=== PATIENT | female | born 1980 ===

== ENCOUNTER 2016-08-21 22:47 | Emergency (ER) | payer SELFPAY ==
[2016-08-21 23:12] VITALS: BP 106/72; PULSE 68; RESP 18; TEMP 98; O2SAT 99
--- NOTE | 2016-08-21 23:23 | ED PDOC ---
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 pt admits rash to be at legs b/l buttock, arms b/l and chest with itching. denies:: pain, swelling of fingers, lips tongue ear or toes, denies SOB , CP, nausea vomiting, diarrhea, vision changes. denies use of new detergent soaps foods. Past Medical History Reviewed: Historical Data, Nursing Documentation, Vital Signs Vital Signs: Last Vital Signs Temp 98 F 08/21/16 23:10 Pulse 68 08/21/16 23:10 Resp 18 08/21/16 23:10 BP 106/72 08/21/16 23:10 Pulse Ox 99 08/21/16 23:10 - Medical History PMH: No Chronic Diseases - Family History Family History: States: No Known Family Hx - Home Medications Home Medications: Ambulatory Orders Medication Instructions Recorded Calamine/Pramoxine [Caladryl] 180 ml TP DAILY #1 bottle 08/21/16 DiphenhydrAMINE [Benadryl] 25 mg PO Q4H #30 cap 08/21/16 Methylprednisolone [Medrol Dose 4 mg PO DAILY #21 mg 08/21/16 Pack (21 tabs)] - Allergies Allergies/Adverse Reactions: Allergies Allergy/AdvReac Type Severity Reaction Status Date / Time No Known Allergies Allergy Verified 08/21/16 23:10 Review of Systems ROS Statement: Except As Marked, All Systems Reviewed And Found Negative Constitutional: Negative for: Fever, Chills Skin: Positive for: Rash Physical Exam - Reviewed Nursing Documentation Reviewed: Yes Vital Signs Reviewed: Yes - Physical Exam Appears: Positive for: Well, Non-toxic, No Acute Distress Head Exam: Positive for: ATRAUMATIC, NORMAL INSPECTION, NORMOCEPHALIC Skin: Positive for: Warm, Rash (red rash noted to b/l forearms, buttock, chest and inner thighs no vesicles no induration no swelling ) Eye Exam: Positive for: Normal appearance, EOMI, PERRL ENT: Positive for: Normal ENT Inspection. Negative for: Pharyngeal Erythema Neck: Positive for: Normal, Painless ROM Cardiovascular/Chest: Positive for: Regular Rate, Rhythm Respiratory: Positive for: CNT, Normal Breath Sounds Gastrointestinal/Abdominal: Positive for: Normal Exam, Bowel Sounds, Soft Extremity: Positive for: Normal ROM. 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 Disposition - Clinical Impression Clinical Impression: Allergic dermatitis - Patient ED Disposition Is Patient to be Admitted: No Counseled Patient/Family Regarding: Diagnosis, Need For Followup, Rx Given - Disposition Referrals: [facility] [Outside] [facility] [Provider Group] Disposition: Routine/Home Disposition Time: 23:22 Condition: STABLE Prescriptions: DiphenhydrAMINE [Benadryl] 25 mg PO Q4H #30 cap Calamine/Pramoxine [Caladryl] 180 ml TP DAILY #1 bottle Methylprednisolone [Medrol Dose Pack (21 tabs)] 4 mg PO DAILY #21 mg Instructions: Contact Dermatitis (ED) Print Language: FRISIAN
== END 2016-08-21 23:42 | disposition home or self-care (01) ==
LOC: H.ER 22:47
DX: L23.9 Allergic contact dermatitis, unspecified cause (principal)

== ENCOUNTER 2017-12-04 09:55 | Emergency (ER) | payer OTHER, SELFPAY ==
[2017-12-04 09:59] VITALS: BMI 31.2
[2017-12-04] MEDS ORDERED: Sodium Chloride 0.9% 1,000 ML IV STA (10:26)
--- NOTE | 2017-12-04 10:30 | ED PDOC ---
HPI: Back Time Seen by Provider: 12/04/17 10:01 Chief Complaint (Nursing): Female Genitourinary Chief Complaint (Provider): Back pain History Per: Patient History/Exam Limitations: no limitations Onset/Duration Of Symptoms: Days (x2) Current Symptoms Are (Timing): Constant Additional Complaint(s): Patient is a 37 y/o female with history of thyroid issues, who presents to the ED complaining of right sided lower back pain, onset x2 days ago. Patient reports the pain has been constant and radiates to the right side of her lower abdomen and her right leg. She confrims a little pain when urinating. She denies any incontinence both urinary and bowel, chest pain, shortness of breath , diarrhea, numbness or tingling, as well as any injury or fall. Patient takes medication for her thyroid but has not taken any medication to manage pain symptoms. PMD: Past Medical History Reviewed: Historical Data, Nursing Documentation, Vital Signs Vital Signs: Last Vital Signs Temp 97.6 F 12/04/17 09:59 Pulse 66 12/04/17 09:59 Resp 20 12/04/17 09:59 BP 106/70 12/04/17 09:59 Pulse Ox 99 12/04/17 09:59 - Surgical History Surgical History: No Surg Hx - Family History Family History: States: Unknown Family Hx - Home Medications Home Medications: Ambulatory Orders Medication Instructions Recorded Calamine/Pramoxine [Caladryl] 180 ml TP DAILY #1 bottle 08/21/16 DiphenhydrAMINE [Benadryl] 25 mg PO Q4H #30 cap 08/21/16 Methylprednisolone [Medrol Dose 4 mg PO DAILY #21 mg 08/21/16 Pack (21 tabs)] Ibuprofen [Motrin] 600 mg PO TID 7 Days tab 12/04/17 - Allergies Allergies/Adverse Reactions: Allergies Allergy/AdvReac Type Severity Reaction Status Date / Time No Known Allergies Allergy Verified 08/21/16 23:10 Review of Systems ROS Statement: Except As Marked, All Systems Reviewed And Found Negative Constitutional: Negative for: Fever Cardiovascular: Negative for: Chest Pain Respiratory: Negative for: Shortness of Breath Gastrointestinal: Positive for: Abdominal Pain (right lower). Negative for: Diarrhea Genitourinary Female: Positive for: Dysuria (little bit). Negative for: Frequency, Incontinence Musculoskeletal: Positive for: Back Pain (right lower flank), Leg Pain (upper right leg) Neurological: Negative for: Numbness Physical Exam - Reviewed Nursing Documentation Reviewed: Yes Vital Signs Reviewed: Yes - Physical Exam Appears: Positive for: Non-toxic, No Acute Distress Head Exam: Positive for: ATRAUMATIC, NORMOCEPHALIC Skin: Positive for: Normal Color, Warm, Dry Eye Exam: Positive for: EOMI, Normal appearance, PERRL Neck: Positive for: Normal, Painless ROM, Supple Cardiovascular/Chest: Positive for: Regular Rate, Rhythm. Negative for: Murmur Respiratory: Positive for: Normal Breath Sounds. Negative for: Respiratory Distress Gastrointestinal/Abdominal: Positive for: Normal Exam, Soft, Tenderness ( tenderness to palpation RLQ) Back: Positive for: R CVA Tenderness (tenderness to palpation right flank) Extremity: Positive for: Normal ROM. Negative for: Pedal Edema, Deformity Neurologic/Psych: Positive for: Alert, Oriented, Other (straight leg raise test - negative). Negative for: Motor/Sensory Deficits - Laboratory Results Result Diagrams: 12/04/17 10:30 12/04/17 10:30 Interpretation Of Abn Labs: no acute Urine dip results: Negative for: Leukocyte Esterase, Nitrate - ECG O2 Sat by Pulse Oximetry: 99 (RA) Pulse Ox Interpretation: Normal - CT Scan/US ct Other Rad Studies (CT/US): Read By Radiologist Other Rad Interpretation: no acute - Progress ED Course And Treament: 1248: Stable. AAOx3. Pain free. Tolerated PO. Fu with pcp. Medical Decision Making Medical Decision Making: Time: 10:25 Initial Impression: Right flank pain Initial Plan: --CT Abdomen & Pelvis w/o contrast --CMP --ED urine --Urine Dip --CBC w/ differential --Sodium Chloride 0.9% 1000 ml IV 1000 mls/hr --Toradol 15 mg IVP ----- Scribe Attestation: Documented by Jt Ho, acting as a scribe for Kevin Vásquez MD. Provider Scribe Attestation: All medical record entries made by the Scribe were at my direction and personally dictated by me. I have reviewed the chart and agree that the record accurately reflects my personal performance of the history, physical exam, medical decision making, and the department course for this patient. I have also personally directed, reviewed, and agree with the discharge instructions and disposition. Disposition - Clinical Impression Clinical Impression: Back pain - Patient ED Disposition Is Patient to be Admitted: No Counseled Patient/Family Regarding: Studies Performed, Diagnosis, Need For Followup, Rx Given - Disposition Referrals: [facility] [Outside] - 12/05/17 Disposition: Routine/Home Disposition Time: 12:48 Condition: STABLE Additional Instructions: Return if not better in 3 days. Prescriptions: Ibuprofen [Motrin] 600 mg PO TID 7 Days tab Instructions: Low Back Pain in Adults Print Language: ROMANSH
[2017-12-04 10:52] LABS: BASO # 0.1 K/uL (0.0-0.2); BASO % 0.8 % (0.0-2.0); EOS # 0.1 K/uL (0.0-0.7); EOS % 1.6 % (0.0-4.0); HEMOGLOBIN 13.7 g/dL (12.0-16.0); LYMPH # 2.3 K/uL (1.0-4.3); LYMPH % 30.7 % (20.0-40.0); MEAN CELL VOLUME 85.8 fl (81.0-99.0); MEAN CORPUSCULAR HEMOGLOBIN 29.5 pg (27.0-31.0); MEAN CORPUSCULAR HGB CONC 34.4 g/dL (33.0-37.0); MEAN PLATELET VOLUME 9.1 fl (7.2-11.7); MONO # 0.4 K/uL (0.0-0.8); MONO % 5.9 % (0.0-10.0); NEUT # 4.6 K/uL (1.8-7.0); NRBC % 0.1 % (0.0-0.0); RBC 4.64 Mil/uL (3.80-5.20); WHITE BLOOD COUNT 7.5 K/uL (4.8-10.8)
[2017-12-04 10:54] LABS: ALB/GLOB RATIO 1.4 (1.0-2.1); ALBUMIN 4.1 g/dL (3.5-5.0); ALT/SGPT 22 U/L (9-52); AST/SGOT 19 U/L (14-36); BLOOD UREA NITROGEN 13 mg/dl (7-17); CALCIUM 9.3 mg/dL (8.4-10.2); GFR AFRICAN-AMERICAN > 60; GFR NON-AFRICAN AMERICAN > 60
--- NOTE | 2017-12-04 11:50 | CT ---
Date of service: 12/04/2017 PROCEDURE: CT Abdomen and Pelvis without intravenous contrast HISTORY: R/O stone COMPARISON: None. TECHNIQUE: Axial and reformatted coronal and sagittal CT images of the abdomen and pelvis were obtained without IV or oral contrast administration. Contrast dose: . Radiation dose: Total exam DLP = 969.36 mGy-cm. This CT exam was performed using one or more of the following dose reduction techniques: Automated exposure control, adjustment of the mA and/or kV according to patient size, and/or use of iterative reconstruction technique. FINDINGS: LOWER THORAX: Unremarkable. LIVER: Unremarkable. No gross lesion or ductal dilatation. GALLBLADDER AND BILE DUCTS: Unremarkable. PANCREAS: Unremarkable. No gross lesion or ductal dilatation. SPLEEN: Unremarkable. ADRENALS: Unremarkable. No mass. KIDNEYS AND URETERS: Unremarkable. No hydronephrosis. No solid mass. VASCULATURE: Unremarkable. No aortic aneurysm. BOWEL: Unremarkable. No obstruction. No gross mural thickening. APPENDIX: No evidence of appendicitis PERITONEUM: Unremarkable. No free fluid. No free air. LYMPH NODES: Unremarkable. No enlarged lymph nodes. BLADDER: Unremarkable. REPRODUCTIVE: Unremarkable. BONES: No acute fracture. OTHER FINDINGS: None. IMPRESSION: No evidence of nephrolithiasis or hydronephrosis. No CT evidence of cholecystitis pancreatitis or appendicitis.
[2017-12-04 13:08] VITALS: BP 110/66; PULSE 64; RESP 16; TEMP 97.9; O2SAT 100
== END 2017-12-04 13:00 | disposition home or self-care (01) ==
LOC: H.ER 09:55
DX: M54.9 Dorsalgia, unspecified (principal)
CPT/HCPCS: 74176; 80053; 81025; 85025; 96361; 96374; 99284; J1885; J7030